=== PATIENT | female | born 1980 | race Caucasian/White ===

== ENCOUNTER 2017-08-20 20:32 | Emergency (ER) | payer SELFPAY ==
[2017-08-20 21:00] VITALS: BP 117/69
--- NOTE | 2017-08-20 21:21 | UC ---
Complaint Female HPI - HPI Summary HPI Summary: Pt c/o pelvic pain/cramping that radiates around to low back. 3 days. - History Of Current Complaint Chief Complaint: UCAbdominalPain Stated Complaint: ABD PAIN Time Seen by Provider: 08/20/17 21:00 Hx Obtained From: Patient Hx Last Menstrual Period: 08/17/17 ?: No Onset/Duration: Gradual Onset, Lasting Days - 3 Timing: Constant Severity Initially: Mild Severity Currently: Moderate Character: Dull, Cramping Aggravating Factor(s): Urination Alleviating Factor(s): Nothing Associated Signs And Symptoms: Positive: Back Pain - Risk Factors Ectopic Risk Factor: Tubal Ligation - has essure Ovarian Torsion Risk Factor: Tubal Ligation - has essure - Allergies/Home Medications Allergies/Adverse Reactions: Allergies Allergy/AdvReac Type Severity Reaction Status Date / Time Hydrocodone Allergy Hallucinati Verified 08/20/17 21:00 ons Latex Allergy HIVES, Verified 08/20/17 21:00 ITCHING Home Medications: Home Medications Albuterol HFA INHALER* [Ventolin HFA Inhaler*] 2 puff INH Q4H PRN 08/20/17 [ History Confirmed 08/20/17] Loratadine [Claritin 10 MG CAP] 10 mg PO DAILY 08/20/17 [History Confirmed 08/20] PMH/Surg Hx/FS Hx/Imm Hx Previously Healthy: Yes - Surgical History Surgical History: Yes Surgery Procedure, Year, and Place: lt knee arthoscopy x 2, 2004 AND 2009, [facility]. LAP CHOLECYSTECTOMY, 2009, [facility]. right thumb - Family History Known Family History: Positive: Cardiac Disease - Social History Occupation: Employed Full-time Lives: With Family Alcohol Use: Rare Substance Use Type: Marijuana Smoking Status (MU): Never Smoked Tobacco Have You Smoked in the Last Year: Yes - marijuana Review of Systems Constitutional: Negative Skin: Negative Eyes: Negative ENT: Negative Respiratory: Negative Cardiovascular: Negative Gastrointestinal: Abdominal Pain Genitourinary: Dysuria, Frequency, Urgency Motor: Negative Neurovascular: Negative Musculoskeletal: Negative Neurological: Negative Psychological: Negative Is Patient Immunocompromised?: No All Other Systems Reviewed And Are Negative: Yes Physical Exam Triage Information Reviewed: Yes Appearance: Pain Distress - mild Vital Signs: Initial Vital Signs Temp 98.3 F 08/20/17 20:56 Pulse 71 08/20/17 20:56 Resp 17 08/20/17 20:56 BP 117/69 08/20/17 20:56 Pulse Ox 100 08/20/17 20:56 Vital Signs Reviewed: Yes Eye Exam: Normal ENT Exam: Normal Dental Exam: Other - missing upper teeth Neck exam: Normal Respiratory Exam: Normal Cardiovascular Exam: Normal Abdominal Exam: Other Abdomen Description: Positive: CVA Tenderness (R), CVA Tenderness (L), Other: - suprapubic tenderness Musculoskeletal Exam: Normal Neurological Exam: Normal Psychological Exam: Normal Skin Exam: Normal Complaint Female Dx - Differential Dx/Diagnosis Differential Diagnosis/HQI/PQRI: Ovarian Cyst, Urinary Tract Infection Provider Diagnoses: UTI Discharge - Discharge Plan Condition: Stable Disposition: HOME Prescriptions: Cephalexin CAP* [Keflex 500 CAP*] 500 mg PO Q12H #10 cap Phenazopyridine TAB* [Pyridium 100 mg TAB*] 100 mg PO Q8H #6 tab Patient Education Materials: Urinary Tract Infection in Women (ED) Referrals: Zulema Noyola MD [Medical Doctor] - If Needed
[2017-08-20] MEDS ORDERED: Cephalexin CAP* 500 MG PO ONE (21:27)
[2017-08-20] MEDS ORDERED: Phenazopyridine TAB* 100 MG PO ONE (21:27)
== END 2017-08-20 21:47 | disposition home or self-care (01) ==
LOC: UCCORT 20:32
DX: N39.0 Urinary tract infection, site not specified (principal); F12.90 Cannabis use, unspecified, uncomplicated; Z88.6 Allergy status to analgesic agent; Z91.040 Latex allergy status
CPT/HCPCS: 81003; 84702; 87077; 87086; 87186; 99212; A9270-GY; G0463